=== PATIENT | male | born 1955 | race Hispanic/Latino ===

== ENCOUNTER 2019-01-01 14:15 | Emergency (ER) | payer BC ==
[2019-01-01] MEDS ORDERED: Morphine 4 MG/ML VIAL ONE ×2 (15:02→15:31)
[2019-01-01] MEDS ORDERED: Bupivacaine 0.5% 10 ML VIAL ONE (15:03)
--- NOTE | 2019-01-01 15:20 | RAD ---
XR Shoulder Lt 2 View: 01/01/2019 2:28 PM CLINICAL INDICATION: Fall from ladder, pain COMPARISON: None. FINDINGS: Fracture:There is suggestion of a mild impaction injury at the posterolateral humeral head. There is anterior dislocation of the proximal left humerus relative to the scapular glenoid. Arthropathy:Mild arthropathy. Incidental findings:None of significance. IMPRESSION: 1. Anterior left shoulder dislocation. 2. Subtle impaction of the posterior lateral humeral head to indicate Hill-Sachs lesion. Recommend orthopedic consultation.
[2019-01-01] MEDS ORDERED: PROPOFOL 20 ML ONE (16:43)
--- NOTE | 2019-01-01 17:27 | RAD ---
EXAM: Single view of the left shoulder HISTORY: Reduction of shoulder dislocation COMPARISON: 01/01/2019 at 2:43 PM FINDINGS: There is been reduction of the previously seen anterior shoulder dislocation. No fracture i s seen. Mild degenerative changes seen in the left shoulder. IMPRESSION: Reduction of left shoulder dislocation
== END 2019-01-01 18:06 | disposition home or self-care (01) ==
LOC: ERS 14:15
DX: S43.015A Anterior dislocation of left humerus, initial encounter (principal); F17.210 Nicotine dependence, cigarettes, uncomplicated; Z79.899 Other long term (current) drug therapy; W11.XXXA Fall on and from ladder, initial encounter
CPT/HCPCS: 23650; 96372; 99152; J2270; J2704; J3490

== ENCOUNTER 2019-01-26 23:04 | Emergency (ER) | payer BC ==
[2019-01-27] MEDS ORDERED: Morphine 4 MG/ML VIAL ONE (00:04)
[2019-01-27] MEDS ORDERED: PROPOFOL 20 ML ONE (00:15)
--- NOTE | 2019-01-27 07:30 | RAD ---
EXAM: 2 views of the left shoulder HISTORY: Shoulder pain COMPARISON: 01/01/2019 FINDINGS: There is no evidence of acute fracture or dislocation. No degenerative changes are present. No soft tissue swelling is seen. The visualized thorax is unremarkable. IMPRESSION: No evidence of acute osseous abnormality.
== END 2019-01-27 01:24 | disposition home or self-care (01) ==
LOC: ERS 23:04
DX: S43.005A Unspecified dislocation of left shoulder joint, initial encounter (principal); F17.210 Nicotine dependence, cigarettes, uncomplicated; W19.XXXA Unspecified fall, initial encounter
CPT/HCPCS: 23650; 96374; 99156; J2270; J2704

== ENCOUNTER 2019-05-08 00:12 | Emergency (ER) | payer BC ==
[2019-05-08] MEDS ORDERED: PROPOFOL 20 ML ONE (03:21)
--- NOTE | 2019-05-08 08:18 | RAD ---
Exam: XR Shoulder Lt 2 View HISTORY: Left shoulder pain. COMPARISON: 01/27/2019 FINDINGS: The humeral head is dislocated anteriorly and medially with respect to the glenoid. No obvious fractu re is seen. No other osseous abnormality. IMPRESSION: Anterior left shoulder dislocation.
--- NOTE | 2019-05-08 08:20 | RAD ---
Exam: XR Shoulder Lt 2 View HISTORY: Post reduction of left shoulder dislocation. COMPARISON: 05/08/2019 at 1246 hours. FINDINGS: There has been interval reduction in the previously noted left anterior shoulder dislocation. No obvi ous fracture is visualized, and there is no dislocation. 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 IMPRESSION: Interval reduction of previously noted left anterior shoulder dislocation. No obvious fracture or dis location is seen on provided images.
== END 2019-05-08 04:20 | disposition home or self-care (01) ==
LOC: ERS 00:12
DX: S43.015A Anterior dislocation of left humerus, initial encounter (principal); S43.035A Inferior dislocation of left humerus, initial encounter; F17.210 Nicotine dependence, cigarettes, uncomplicated
CPT/HCPCS: 23650; 96360; 99152; J2704

== ENCOUNTER 2019-09-05 12:50 | Emergency (ER) | payer MEDICARE, BC ==
--- NOTE | 2019-09-05 15:28 | RAD ---
LEFT SHOULDER 3 VIEWS: HISTORY: Injury, left shoulder pain. FINDINGS/IMPRESSION: There is an anterior dislocation at the glenohumeral joint. No fracture is seen. POS: OFF
[2019-09-05] MEDS ORDERED: PROPOFOL 20 ML ONE (16:35)
--- NOTE | 2019-09-05 17:12 | RAD ---
Exam:Left shoulder 2 views HISTORY: Pain. Injury. Dislocation. COMPARISON: 09/05/2019 3:54 PM FINDINGS: Interval reduction of personally noted anterior-inferior dislocation. No evidence of fractu re. There are degenerative changes in the acromioclavicular joint space. IMPRESSION: Interval reduction of previously noted anterior-inferior dislocation
== END 2019-09-05 17:58 | disposition home or self-care (01) ==
LOC: ERS 12:50
DX: S43.015A Anterior dislocation of left humerus, initial encounter (principal); F17.210 Nicotine dependence, cigarettes, uncomplicated; X58.XXXA Exposure to other specified factors, initial encounter
CPT/HCPCS: 23650; 99152; J2704

== ENCOUNTER 2019-09-21 08:24 | Outpatient (CLI) | payer MEDICARE, BC ==
[~2019-09-21 08:24] MED LIST: EPINEPHrine 1 MG/ML AMP ONE; Gadobenate Dimeglumine 529 MG/1 ML (20ML VIAL) ONE; Iopamidol 300 61% 50 ML VIAL FS ONE; Lidocaine 1% PF 10 ML AMP ONE
--- NOTE | 2019-09-21 11:30 | MRI ---
LEFT SHOULDER MRI POST ARTHROGRAM CONTRAST: Date: 09/21/2019 HISTORY: Recurrent anterior dislocation of left shoulder, left shoulder pain. Exam done post arthrogram. FINDINGS: There is extensive longstanding complete retracted rotator cuff tears of the supraspinatus and infras pinatus tendons with marked retraction back to near the level of the glenoid. Remote appearing promin ent Hill-Sachs osteochondral impaction injury of the humerus. Contrast media extends through the larg e defect in the rotator cuff and extends into the AC joint. There is undersurface spurring of the lat eral acromion. There is severe muscle volume loss of the supraspinatus and infraspinatus muscles. The re is a delaminating tear of the teres minor tendon extending to the myotendinous region. Undersurfac e delaminating tear of the subscapularis tendon. Abnormal signal associated with the superior labrum, evidence for a SLAP tear. Abnormal appearing labrum involving the inferior anterior labrum with some irregular cartilage loss, including some full thickness cartilage fissures and cartilage loss, with no normal identifiable residual labrum. 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 IMPRESSION: 1. Extensive rotator cuff tears as above. 2. Extension of contrast from the joint into the subacromial bursa and into the AC joint which is ab normally widened, with lateral acromial prominent spurring. 3. Extensive abnormal signal associated with the superior labrum, evidence for extensive SLAP tear. 4. 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 POS: [facility]
--- NOTE | 2019-09-21 12:24 | RAD ---
LEFT SHOULDER ARTHROGRAM: Date: 09/21/2019 HISTORY: Recurrent anterior dislocation of left shoulder. TECHNIQUE/FINDINGS: Following informed consent, the left shoulder was prepped and draped in the usual sterile fashion. Lo josefa anesthesia was obtained with 1% Xylocaine. A 22 gauge spinal needle was introduced into the anter ior superior glenohumeral joint and a mixture of Gadolinium and iodinated contrast media was injected . Spot films confirm interarticular location. There is a large Hill-Sachs type osteochondral impaction injury and associated defect. Contrast media extends into the subacromial/subdeltoid bursa. Evidence for probable extensive full thickness rotato r cuff tear. There is some nodularity to the appearance of the joint fluid concerning for the possibi lity of synovitis. AC joint arthrosis. IMPRESSION: Successful left shoulder arthrogram as above. Patient tolerated the procedure well and was moved to MRI for post arthrogram MRI to follow. POS: [facility]
[2019-09-21] MEDS ORDERED: Magnevist 469MG/ML 20 ML VIAL ONE (14:53)
== END 2019-09-21 08:25 | disposition home or self-care (01) ==
LOC: RAD 08:24
PROVIDERS: ATTEND Orthopaedic Surgery
DX: M24.412 Recurrent dislocation, left shoulder (principal); M19.012 Primary osteoarthritis, left shoulder; S43.432A Superior glenoid labrum lesion of left shoulder, initial encounter; M75.122 Complete rotator cuff tear or rupture of left shoulder, not specified as traumatic; M75.92 Shoulder lesion, unspecified, left shoulder; M25.812 Other specified joint disorders, left shoulder; S49.82XA Other specified injuries of left shoulder and upper arm, initial encounter; S42.292A Other displaced fracture of upper end of left humerus, initial encounter for closed fracture; S43.492A Other sprain of left shoulder joint, initial encounter
CPT/HCPCS: 23350; A9577; A9579; J0171; J2001; Q9967

== ENCOUNTER 2024-07-07 02:13 | Emergency (ER) | payer BC, OTHER ==
[2024-07-07] MEDS ORDERED: Morphine 4 MG/ML VIAL ONE ×2 (02:37→04:23)
[2024-07-07] MEDS ORDERED: Ondansetron PF 4 MG/2 ML Vial ONE (02:37)
== END 2024-07-07 06:35 | disposition home or self-care (01) ==
LOC: ERS 02:13
DX: S43.015A Anterior dislocation of left humerus, initial encounter (principal); F17.210 Nicotine dependence, cigarettes, uncomplicated; X58.XXXA Exposure to other specified factors, initial encounter
CPT/HCPCS: 73030; 96374; 96375; 96376; 99283; J2272; J2405